=== PATIENT | female | born 1985 | race Caucasian/White ===

== ENCOUNTER 2020-03-09 15:40 | Emergency (ER) | payer MEDICAID, OTHER ==
[~2020-03-09] VITALS: Ht 157.5 cm; Wt 59.1 kg
--- NOTE | 2020-03-09 15:59 | PHYS DOC ---
Past Medical History Past Medical History: No Pertinent History Past Surgical History: No Surgical History Smoking Status: Never Smoker Alcohol Use: None Drug Use: None General Adult EDM: Chief Complaint: ALLERGIC REACTION HPI: HPI: Patient is a 35-year-old female presents with report of pruritic rash to chest, back, ears, bilateral upper extremities, and face which started upon taking antibiotic approximately 30 minutes prior to arrival. Patient reports has had a week long history of left lower molar pain. Her significant other gave her some of his leftover unknown antibiotic. Denies difficulty breathing. Reports her face feels very warm. Denies tongue swelling. Reports is able to swallow saliva without difficulty. Review of Systems: Review of Systems: Constitutional: Denies fever or chills Eyes: Denies redness or eye pain HENT: Denies nasal congestion, denies tongue swelling, or sore throat; reports facial swelling Respiratory: Denies cough or shortness of breath Cardiovascular: Denies chest pain or palpitations GI: Denies abdominal pain, nausea, or vomiting : Denies dysuria or hematuria Musculoskeletal: Denies back pain or joint pain Integument: Reports pruritic rash Neurologic: Denies headache, focal weakness or sensory changes Complete systems were reviewed and found to be within normal limits, except as documented in this note. Allergies: Allergies: Allergies Coded Allergies Type Severity Reaction Last Updated Verified No Known Drug Allergies 12/04/13 No Physical Exam: PE: Constitutional: Well developed, well nourished, anxious, non-toxic appearance HENT: Normocephalic, atraumatic, no stridor, left mandibular molar dental caries noted, no fluctuant abscess appreciated, patient handling secretions without difficulty, no tongue swelling Eyes: Conjunctiva normal, no discharge Neck: Normal range of motion, no tenderness, supple Lungs & Thorax: No respiratory distress, equal chest rise and fall Skin: Warm, dry, raised urticarial rash noted to face, bilateral ears, trunk, and bilateral upper extremities Extremities: No tenderness, ROM intact, no edema Neurologic: Alert and oriented X 3, no focal deficits noted Psychologic: Affect anxious, judgment normal EKG: EKG: [] Radiology/Procedures: Radiology/Procedures: [] Course & Med Decision Making: Course & Med Decision Making Patient presents with HPI and physical exam consistent for allergic reaction secondary to unknown antibiotic. No airway compromise appreciated. Sats stable. Patient tolerating p.o. Oral Benadryl and Pepcid provided. IM shot of dexamethasone also given. Patient with interval improvement of symptoms. A appropriate dose of oral antibiotic, clindamycin, provided. Patient stable for discharge with outpatient follow-up with PCP/dentist. Dental referral list provided. Discussed findings and plan with patient and significant other, who acknowledge understanding and agreement. Charles Disclaimer: Charles Disclaimer: This electronic medical record was generated, in whole or in part, using a voice recognition dictation system. Departure Departure Impression: Primary Impression: Allergic reaction caused by a drug Qualified Codes: T78.40XA - Allergy, unspecified, initial encounter Additional Impressions: Dental caries Urticaria Disposition: HOME SELF CARE/HOMELESS Condition: STABLE Referrals: NON,STAFF (PCP) Patient Instructions: Dental Caries, Drug Allergy, [id number], Hives, [id number] Scripts Clindamycin Hcl (CLINDAMYCIN HCL) 300 Mg Capsule 1 CAP PO TID for Infection for 7 Days, #21 CAP Prov: MEREDITH MAURICE DO 03/09/20 Diphenhydramine Hcl (BENADRYL) 25 Mg Capsule 25 MG PO Q4-6HRS PRN for RASH, #30 CAP Prov: MEREDITH MAURICE DO 03/09/20 Famotidine (PEPCID) 20 Mg Tablet 20 MG PO BID, #14 TAB Prov: MEREDITH MAURICE DO 03/09/20 Prednisone (PREDNISONE) 20 Mg Tablet 2 TAB PO DAILY, #8 TAB Please take this medication tomorrow, Monday03/10/2020 Prov: MEREDITH MAURICE DO 03/09/20 MEREDITH MAURICE DO Mar 09, 2020 15:58
[2020-03-09] MEDS ORDERED: DEXAMETHASONE SOD PHOS 4 MG/ML VIAL IM ONE (16:00)
[2020-03-09] MEDS ORDERED: DEXAMETHASONE 4 MG TABLET PO ONE (16:00)
[2020-03-09] MEDS ORDERED: FAMOTIDINE 20 MG TABLET. PO ONE (16:00)
[2020-03-09] MEDS ORDERED: CLINDAMYCIN HCL 150 MG CAPSULE. PO ONE (16:00)
[2020-03-09] MEDS ORDERED: diphenhydrAMINE HCL 25 MG CAPSULE PO ONE (16:00)
[2020-03-09] MEDS ORDERED: DEXAMETHASONE SOD PHOS 20 MG/5 ML VIAL. IV ONE (16:00)
[2020-03-09] MEDS ORDERED: CLIN300C8 PO (16:06)
[2020-03-09] MEDS ORDERED: PRED20TA PO (16:06)
[2020-03-09] MEDS ORDERED: FAMO-63 PO (16:06)
[2020-03-09] MEDS ORDERED: DIPH25CA58 PO (16:06)
[2020-03-09 16:41] VITALS: BP 127/80
== END 2020-03-09 17:21 | disposition home or self-care (01) ==
LOC: ER 15:40
DX: L50.9 Urticaria, unspecified (principal); T36.8X5A Adverse effect of other systemic antibiotics, initial encounter; K02.9 Dental caries, unspecified; R21 Rash and other nonspecific skin eruption; Y92.89 Other specified places as the place of occurrence of the external cause
CPT/HCPCS: 96372; 99284; J1100; Q0163

== ENCOUNTER 2020-04-22 16:13 | Emergency (ER) | payer MEDICAID ==
[~2020-04-22] VITALS: Ht 154.9 cm; Wt 59.0 kg
[~2020-04-22 16:13] MED LIST: CLIN300C9 PO; DIPH25CA58 PO; FAMO-63 PO; PRED20TA PO
[2020-04-22 18:22] VITALS: BP 157/88
[2020-04-22] MEDS: LIDOCAINE/EPI/TETRACAINE TOPICAL GEL 3 ML. TP ONE (18:40)
[2020-04-22] MEDS: HYDROcodone/APAP 5/325MG 1 TAB TABLET PO ONE (18:40)
[2020-04-22] MEDS ORDERED: HYDR-2761 PO (19:02)
[2020-04-22] MEDS ORDERED: CLIN150C14 PO (19:02)
--- NOTE | 2020-04-22 19:03 | ED.ADGEN ---
Past Medical History Past Medical History: No Pertinent History Past Surgical History: No Surgical History Smoking Status: Never Smoker Alcohol Use: None Drug Use: None General Adult EDM: Chief Complaint: ABSCESS HPI: HPI: Patient is a 35 year old female who presents the emergency department with complaints of a painful, swollen area to her left labia for the last 3 days. Patient denies any drainage from the site. She denies any dysuria, hematuria, increased urinary frequency, irregular vaginal discharge, or vaginal odor. She currently rates pain 10 out of 10 on pain scale, she denies any alleviating factors, the pain is worse if the area is touched. Review of Systems: Review of Systems: Complete ROS is negative unless otherwise noted in HPI. Current Medications: Current Medications Medications (Trade) Dose Ordered Sig/Jemal Start Time Stop Time Status Last Admin Dose Admin Acetaminophen/ Hydrocodone Bitart (Lortab 5/325) 1 tab 1X ONCE 04/22/20 18:30 04/22/20 18:34 DC 04/22/20 18:40 1 TAB Tetracaine/ Epinephrine/ Lidocaine (Let (Uqgq-Ettdbru-Mvuhr) Gel) 3 ml 1X ONCE 04/22/20 18:30 04/22/20 18:34 DC 04/22/20 18:40 3 ML Allergies: Allergies: Allergies Uncoded Allergies Type Severity Reaction Last Updated Verified unknown antibiotic Allergy Severe swelling of lips, ears, fingers, rash, itching 03/09/20 Physical Exam: PE: See Above Constitutional: Well developed, well nourished, no acute distress, non-toxic appearance. HENT: Normocephalic, atraumatic, bilateral external ears normal, nose normal. Eyes: PERRLA, EOMI, conjunctiva normal, no discharge. Neck: Normal range of motion, no stridor. Cardiovascular: Heart rate regular rhythm Lungs & Thorax: Respirations even and unlabored, no retractions, no respiratory distress Abdomen: Nontender, soft External Genitalia: 8 cm x 4 cm abscess of the left labia majora with centralized punctum and fluctuance, no drainage, mild surrounding erythema concerning for labial abscess Skin: Warm, dry Extremities: No cyanosis, ROM intact, no edema. Neurologic: Alert and oriented X 3, no focal deficits noted. Psychologic: Affect normal, judgement normal, mood normal. Current Patient Data: Vital Signs: Vital Signs Date Time Temp Pulse Resp B/P (MAP) Pulse Ox O2 Delivery O2 Flow Rate FiO2 04/22/20 18:40 20 04/22/20 18:22 98.3 114 157/88 (111) 99 Room Air 98.3 EKG: EKG: [] Heart Score: Risk Factors: Risk Factors: DM, Current or recent (<one month) smoker, HTN, HLP, family history of CAD, obesity. Risk Scores: Score 0 - 3: 2.5% MACE over next 6 weeks - Discharge Home Score 4 - 6: 20.3% MACE over next 6 weeks - Admit for Clinical Observation Score 7 - 10: 72.7% MACE over next 6 weeks - Early Invasive Strategies Radiology/Procedures: Radiology/Procedures: Indication: abscess Procedure: The patient was positioned appropriately. Local anesthesia was topical LET. An incision was then made over the apex of the lesion and moderate amount of purulent and bloody drainage was expressed. The patient tolerated the procedure well. Complications: none.[] Course & Med Decision Making: Course & Med Decision Making Pertinent Labs and Imaging studies reviewed. (See chart for details) [] Dragon Disclaimer: Dragon Disclaimer: This electronic medical record was generated, in whole or in part, using a voice recognition dictation system. Departure Departure Impression: Primary Impression: Abscess of labia majora Disposition: 01 DC HOME SELF CARE/HOMELESS Condition: STABLE Referrals: ODELL KENYON Jr, MD Patient Instructions: Bartholin's Cyst or Abscess Additional Instructions: Fill the prescription(s) and use as directed. You may also take ibuprofen as needed for pain. Apply warm, moist packs to the area to help decrease discomfort. Follow up with Dr. Kenyon within 48 hours to have wound rechecked. Return to the ER sooner if your symptoms worsen or if fever develops.. Scripts Hydrocodone Bit/Acetaminophen (HYDROCODONE-APAP 5-325 ) 1 Tab Tablet 1 TAB PO PRN Q6HRS PRN for PAIN for 3 Days, #12 TAB 0 Refills Prov: JAN THEODORE [employer] 04/22/20 Clindamycin Hcl (CLINDAMYCIN HCL) 150 Mg Capsule 450 MG PO TID for 7 Days, #63 CAP 0 Refills Prov: JAN THEODORE [employer] PROFESSIONAL 04/22/20 JAN THEODORE [employer]ESSION[employer] Apr 22, 2020 19:03
== END 2020-04-22 19:55 | disposition home or self-care (01) ==
LOC: ER 16:13
DX: N76.4 Abscess of vulva (principal)
CPT/HCPCS: 56405; 99284

== ENCOUNTER 2021-08-23 08:59 | Emergency (ER) | payer SELFPAY ==
[~2021-08-23] VITALS: Ht 154.9 cm; Wt 60.1 kg
[~2021-08-23 08:59] MED LIST changes: +CLIN-94 PO; +CLIN150C16 PO; -CLIN300C9 PO; +HYDR-2761 PO
--- NOTE | 2021-08-23 09:03 | PHYS DOC ---
Past Medical History Past Medical History: No Pertinent History Past Surgical History: No Surgical History Smoking Status: Never Smoker Alcohol Use: None Drug Use: None Adult General Chief Complaint Chief Complaint: DENTAL PROBLEM [facility] Patient is a 36 year old female who presents with dental pain. Patient has known tooth with cavity in the right mandibular molar area. Has not been able to afford to see a dentist. Comes in today with worsening pain over the last 1 to 2 days. No fever. No difficulty swallowing. No swelling. Review of Systems Review of Systems Constitutional: Denies fever or chills Eyes: Denies change in visual acuity, redness, or eye pain HENT: As documented in HPI Respiratory: Denies cough or shortness of breath Cardiovascular: No additional information Musculoskeletal: Denies Integument: Denies Neurologic: Denies All other systems were reviewed and found to be within normal limits, except as documented in this note. Allergies Allergies Allergies Uncoded Allergies Type Severity Reaction Last Updated Verified unknown antibiotic Allergy Severe swelling of lips, ears, fingers, rash, itching 03/09/20 Physical Exam Physical Exam Constitutional: Well developed, well nourished, no acute distress, non-toxic appearance HENT: Moist mucous membranes, posterior oropharynx is clear. Floor of mouth is soft. In the area of concern, there is a large cavity in the right most posterior mandibular molar. Mild gingival erythema but no obvious abscess is present Eyes: PERRLA, EOMI, conjunctiva normal Neck: Normal range of motion Cardiovascular:Heart rate regular rhythm Lungs & Thorax: Bilateral breath sounds clear Skin: Warm, dry Back: Normal range of motion Extremities: No tenderness Neurologic: Alert and oriented X 3 Psychologic: Affect normal Current Patient Data Vital Signs Vital Signs Date Time Temp Pulse Resp B/P (MAP) Pulse Ox O2 Delivery O2 Flow Rate FiO2 08/23/21 09:04 98.4 89 20 145/99 (114) 100 Room Air 98.4 EKG EKG [] Radiology/Procedures Radiology/Procedures [] Course & Med Decision Making Course & Med Decision Making Pertinent Labs and Imaging studies reviewed. (See chart for details) ED summary: Patient seen in the emergency department as documented above. She is overall nontoxic and there are no acute findings on her physical examination other than a cavitatious molar. In the ER, she is given amoxicillin and pain medication. She is stable for discharge home and placed on the same. I recommended she follow-up with a dentist as soon as possible. Charles Disclaimer Dragon Disclaimer This electronic medical record was generated, in whole or in part, using a voice recognition dictation system. Departure Departure Impression: Primary Impression: Pain, dental Disposition: HOME / SELF CARE / HOMELESS Condition: GOOD Referrals: NO PCP (PCP) Scripts Hydrocodone/Acetaminophen (Hydrocodone-Acetamin 5-325 mg) 1 Each Tablet 2 EACH PO BID for pain for 4 Days, #16 TAB Prov: CHAVA THOMPSON DO 08/23/21 Ibuprofen (IBUPROFEN) 800 Mg Tablet 800 MG PO PRN TID PRN for PAIN for 7 Days, #21 TAB take with food or milk to avoid upsetting stomach Prov: CHAVA THOMPSON DO 08/23/21 Amoxicillin (AMOXICILLIN) 500 Mg Tablet 1 TAB PO BID for 10 Days, #20 TAB Prov: CHAVA THOMPSON DO 08/23/21 CHAVA THOMPSON DO August 23, 2021 09:03
[2021-08-23 09:04] VITALS: BP 145/99
[2021-08-23] MEDS ORDERED: IBUP-1060 PO (09:26)
[2021-08-23] MEDS ORDERED: AMOX500T PO (09:26)
[2021-08-23] MEDS ORDERED: HYDR-2759 PO (09:26)
[2021-08-23] MEDS ORDERED: AMOXICILLIN 250 MG CAPSULE. PO ONE (09:30)
[2021-08-23] MEDS ORDERED: HYDROcodone/APAP 5/325MG 1 TAB TABLET PO ONE (09:30)
[2021-08-23] MEDS ORDERED: IBUPROFEN 400 MG TABLET. PO ONE (09:30)
== END 2021-08-23 09:36 | disposition home or self-care (01) ==
LOC: ER 08:59
DX: K08.89 Other specified disorders of teeth and supporting structures (principal); Z88.1 Allergy status to other antibiotic agents
CPT/HCPCS: 99284